=== PATIENT | female | born 1960 | race Caucasian/White ===

== ENCOUNTER 2018-11-29 14:38 | Emergency (ER) | payer OTHER ==
[2018-11-29 15:09] VITALS: BP 134/75
--- NOTE | 2018-11-29 16:20 | ED ---
Influenza-Like Illness - HPI Summary HPI Summary: 58-year-old female with 8-10 days of sinus congestion, pain that has now progressed to drainage mostly about the right eye. She has had sinus issues in the past and now is concerned that she has conjunctivitis. She currently has mild yellow drainage and states that she woke up with her eye crusted shut. These symptoms in the eye began last night. She denies any high fevers, visual issues. She wears glasses but does not wear contact lenses. She is a nonsmoker and is otherwise healthy. - History of Current Complaint Chief Complaint: UCEye Time Seen by Provider: 11/29/18 15:48 Hx Obtained From: Patient - Allergy/Home Medications Allergies/Adverse Reactions: Allergies Allergy/AdvReac Type Severity Reaction Status Date / Time No Known Allergies Allergy Verified 11/29/18 15:08 Home Medications: Home Medications Pseudoephedrine HCl [Nasal Decongestant] 30 mg PO ONCE PRN 11/29/18 [History Confirmed 11/29/18] PMH/Surg Hx/FS Hx/Imm Hx Previously Healthy: Yes Endocrine/Hematology History: Denies: Hx Diabetes Cardiovascular History: Denies: Hx Hypertension, Hx Pacemaker/ICD History: Denies: Hx Renal Disease Musculoskeletal History: Denies: Hx Rheumatoid Arthritis, Hx Osteoporosis Sensory History: Denies: Hx Hearing Aid Psychiatric History: Denies: Hx Panic Disorder - Cancer History Hx Chemotherapy: No Hx Radiation Therapy: No - Surgical History Surgery Procedure, Year, and Place: BREAST BX WITH MARKER Infectious Disease History: No Infectious Disease History: Denies: Hx Clostridium Difficile, Hx Hepatitis, Hx Human Immunodeficiency Virus (HIV), Hx of Known/Suspected MRSA, Hx Shingles, Hx Tuberculosis, Hx Known/ Suspected VRE, Hx Known/Suspected VRSA, History Other Infectious Disease, Traveled Outside the [place] in Last 30 Days - Family History Known Family History: Positive: None, Non-Contributory - Social History Occupation: Employed Full-time Alcohol Use: None Substance Use Type: Reports: None Smoking Status (MU): Never Smoked Tobacco Review of Systems Negative: Fever Positive: Drainage, Erythema. Negative: Blurred Vision Positive: Nasal Discharge, Other - sinus pain bilaterally. Negative: Sore Throat Negative: Shortness Of Breath, Cough Gastrointestinal: Negative All Other Systems Reviewed And Are Negative: Yes Physical Exam Triage Information Reviewed: Yes Vital Signs On Initial Exam: Initial Vitals Temp Pulse Resp BP Pulse Ox 98.4 F 89 18 134/75 100 11/29/18 15:04 11/29/18 15:04 11/29/18 15:04 11/29/18 15:04 11/29/18 15:04 Vital Signs Reviewed: Yes Appearance: Positive: Well-Appearing, No Pain Distress, Well-Nourished Skin: Positive: Warm, Skin Color Reflects Adequate Perfusion, Dry Head/Face: Positive: Normal Head/Face Inspection, Other - Bilateral maxillary sinus tenderness to percussion Eyes: Positive: EOMI, Conjunctiva Clear, Other: - Slight yellow drainage in the right thigh.. Negative: Conjunctiva Inflammed ENT: Positive: Nasal congestion, Nasal drainage, TMs normal, Sinus tenderness. Negative: Pharyngeal erythema Neck: Positive: Supple, Nontender Respiratory/Lung Sounds: Positive: Clear to Auscultation Cardiovascular: Positive: RRR Musculoskeletal: Positive: Strength/ROM Intact Neurological: Positive: Sensory/Motor Intact, Alert, Oriented to Person Place, Time Psychiatric: Positive: Normal Diagnostics - Vital Signs Vital Signs Temp Pulse Resp BP Pulse Ox 11/29/18 15:04 98.4 F 89 18 134/75 100 - Laboratory Lab Statement: Any lab studies that have been ordered have been reviewed, and results considered in the medical decision making process. Flu Symptom Course/Dx - Course Course Of Treatment: Nurse's notes reviewed. Patient is afebrile but has maxillary sinus tenderness and now a conjunctivitis likely related to the sinusitis. Given her lack of other upper respiratory symptoms we will treat as bacterial. Antibiotic prescribed. She does have 10 days of symptoms qualifying this treatment. She'll also receive Polytrim eyedrops and will take a decongestant. - Diagnoses Differential Diagnosis/HQI/PQRI: Positive: Influenza, Upper Respiratory Infection, Other - Bacterial sinusitis, viral sinusitis Provider Diagnoses: Acute maxillary sinusitis, Acute conjunctivitis, right eye Discharge - Sign-Out/Discharge Documenting (check all that apply): Patient Departure All imaging exams completed and their final reports reviewed: No Studies - Discharge Plan Condition: Improved Disposition: HOME Prescriptions: Amoxicillin/Clavulanate TAB* [Augmentin TAB 875*] 875 mg PO BID #20 tab Polymyx/Trimethoprim OPTH* [Polytrim OPHTH*] 1 drop BOTH EYES Q3H #1 btl Patient Education Materials: Sinusitis (ED), Conjunctivitis (ED) Referrals: Bernardo Berg MD [Primary Care Provider] - Additional Instructions: Take Mucinex D ordered other equivalent decongestant. Sinus riddance such as Neti Pot type products. Return with fever, increased facial pain, worse, new symptoms or other concerns. Call on Sunday to schedule prompt follow-up with your primary care physician. - Billing Disposition and Condition Condition: IMPROVED Disposition: Home - Attestation Statements Document Initiated by Avelina: No
== END 2018-11-29 16:30 | disposition home or self-care (01) ==
LOC: UCEAST 14:38
DX: J01.00 Acute maxillary sinusitis, unspecified (principal); H10.31 Unspecified acute conjunctivitis, right eye
CPT/HCPCS: 99212; G0463